=== PATIENT | female | born 1945 | race Caucasian/White ===

== ENCOUNTER 2018-02-23 07:54 | Emergency (ER) | payer MEDICARE, BC ==
--- NOTE | 2018-02-23 08:22 | Emergency Department Record ---
History of Present Illness - General Chief Complaint: Abdominal Pain Stated Complaint: NAUSEA,ABD PAIN Time Seen by Provider: 02/23/18 08:15 Source: Patient, RN notes reviewed Mode of Arrival: Ambulatory - History of Present Illness Initial Comments: 2 days ago and epigastric abdominal pain. and the pain radiates into her back. Patient states nauseated and she has a pacer defibrilalator 2013 EF 25%. Patient states loose stools all the time no changes . GB removed 2013 and appendectomy 1976. MD Complaint: Abdominal pain Onset/Timin -: Days(s) Location: RUQ Radiation: None Migration to: No migration Severity: Severe Quality: Sharp Consistency: Constant Improves With: Nothing Worsens With: Nothing Associated Symptoms: Fever, Nausea - Related Data Home Medications Medication Instructions Recorded Confirmed Last Taken Spironolactone [Aldactone] 25 mg PO DAILY 02/23/18 02/23/18 02/22/18 Previous Rx's Medication Instructions Recorded Pantoprazole Sodium [Protonix] 40 mg PO DAILY #30 tablet. 02/23/18 Allergies Allergy/AdvReac Type Severity Reaction Status Date / Time Sulfa (Sulfonamide Allergy Severe TACHYCARDIA Verified 02/23/18 08:05 Antibiotics) [SULFA (SULFONAMIDE ANTIBIOTICS)] dicyclomine Allergy Intermediate shaking Verified 02/23/18 08:05 fluoxetine HCl [From Prozac] Allergy Intermediate DEPRESSION Verified 02/23/18 08:05 venlafaxine HCl Allergy Mild DEPRESSION Verified 02/23/18 08:05 [From Effexor] lisinopril [From Prinivil] AdvReac Intermediate Cough Verified 02/23/18 08:05 Travel Screening - Travel/Exposure Within Last 30 Days Have you traveled within the last 30 days?: No Review of Systems Reviewed: No additional complaints except as noted below Constitutional: Reports: As per HPI. Denies: Chills, Fever, Malaise, Night sweats, Weakness, Weight change Eyes: Reports: As per HPI. Denies: Eye discharge, Eye pain, Photophobia, Vision change ENT: Reports: As per HPI. Denies: Congestion, Dental pain, Ear pain, Epistaxis , Hearing loss, Throat pain Respiratory: Reports: As per HPI, Other (sob). Denies: Cough, Dyspnea, Hemoptysis, Stridor, Wheezes Cardiovascular: Reports: As per HPI. Denies: Arrhythmia, Chest pain, Dyspnea on exertion, Edema, Murmurs, Orthopnea, Palpitations, Paroxysmal nocturnal dyspnea, Rheumatic Fever, Syncope Endocrine: Reports: As per HPI. Denies: Fatigue, Heat or cold intolerance, Polydipsia, Polyuria Gastrointestinal: Reports: As per HPI. Denies: Abdominal pain, Constipation, Diarrhea, Hematemesis, Hematochezia, Melena, Nausea, Vomiting Genitourinary: Reports: As per HPI. Denies: Abnormal menses, Discharge, Dyspareunia, Dysuria, Frequency, Hematuria, Incontinence, Retention, Urgency Musculoskeletal: Reports: As per HPI. Denies: Arthralgia, Back pain, Gout, Joint swelling, Myalgia, Neck pain Skin: Reports: As per HPI. Denies: Bruising, Change in color, Change in hair/ nails, Lesions, Pruritus, Rash Neurological: Reports: As per HPI. Denies: Abnormal gait, Confusion, Headache, Numbness, Paresthesias, Seizure, Tingling, Tremors, Vertigo, Weakness Psychiatric: Reports: As per HPI. Denies: Anxiety, Auditory hallucinations, Depression, Homicidal thoughts, Suicidal thoughts, Visual hallucinations Hematological/Lymphatic: Reports: As per HPI. Denies: Anemia, Blood Clots, Easy bleeding, Easy bruising, Swollen glands Past Medical History - SOCIAL HISTORY Smoking Status: Never smoker Alcohol Use: None Drug Use: None - RESPIRATORY Hx Respiratory Disorders: No - CARDIOVASCULAR Hx Cardio Disorders: Yes Hx Cardiac Cath: Yes Hx Pacemaker/Defib: Yes - NEURO Hx Neuro Disorders: No - GI Hx GI Disorders: No - Hx Genitourinary Disorders: No - ENDOCRINE Hx Endocrine Disorders: No - MUSCULOSKELETAL Hx Musculoskeletal Disorders: No - PSYCH Hx Psych Problems: No - HEMATOLOGY/ONCOLOGY Hx Hematology/Oncology Disorders: No Family Medical History Any Significant Family History?: Yes Hx Cancer: Grandparents Hx Heart Disease: Father Physical Exam - General General Appearance: Alert, Oriented x3, Cooperative, No acute distress - Head Head exam: Normal inspection - Eye Eye exam: Normal appearance, PERRL Pupils: Normal accommodation - ENT ENT exam: Normal exam, Mucous membranes moist, Normal external ear exam, Normal orophraynx, TM's normal bilaterally Ear exam: Normal external inspection. negative: External canal tenderness Nasal Exam: Normal inspection. negative: Discharge, Sinus tenderness Mouth exam: Normal external inspection, Tongue normal Teeth exam: Normal inspection. negative: Dental caries Throat exam: Normal inspection. negative: Tonsillar erythema, Tonsillar exudate - Neck Neck exam: Normal inspection, Full ROM. negative: Tenderness - Respiratory Respiratory exam: Normal lung sounds bilaterally. negative: Respiratory distress - Cardiovascular Cardiovascular Exam: Regular rate, Normal rhythm, Normal heart sounds - GI/Abdominal GI/Abdominal exam: Soft, Normal bowel sounds, Tenderness (epigatric pain and right upper quad pain) - Rectal Rectal exam: Deferred - exam: Deferred - Extremities Extremities exam: Normal inspection, Full ROM, Normal capillary refill. negative: Tenderness - Back Back exam: Reports: Normal inspection, Full ROM. Denies: Muscle spasm, Rash noted, Tenderness - Neurological Neurological exam: Alert, Normal gait, Oriented X3, Reflexes normal - Psychiatric Psychiatric exam: Normal affect, Normal mood - Skin Skin exam: Dry, Intact, Normal color, Warm Course Vital Signs 02/23/18 07:58 Temperature 98.1 F Pulse Rate 95 H Respiratory 24 Rate Blood Pressure 149/110 Pulse Ox 98 Medical Decision Making - Data Complexity MDM Data: Labs Ordered and/or Reviewed (d dimer elevated 0.76), EKG Ordered and/ or Reviewed (paced rhytm) - Lab Data Result diagrams: 02/23/18 08:31 02/23/18 08:31 Disposition Clinical Impression: Epigastric pain Gastritis Qualifiers: Gastritis type: unspecified gastritis Chronicity: acute Gastritis bleeding: without bleeding Qualified Code(s): K29.00 - Acute gastritis without bleeding Disposition: Home, Self-Care Condition: (1) Good Instructions: Gastritis (ED) Additional Instructions: tylenol for pain protonix one a day Prescriptions: Pantoprazole Sodium [Protonix] 40 mg PO DAILY #30 tablet.dr Forms: Patient Portal Access Time of Disposition: 11:11 Quality - Quality Measures Quality Measures: N/A - Blood Pressure Screening Does Patient Have Any of the Following: No Blood Pressure Classification: Hypertensive Reading Systolic Measurement: 149 Diastolic Measurement: 110 Screening for High Blood Pressure: < Pre-Hypertensive BP, F/U Documented > [ [id number]] Pre-Hypertensive Follow-up Interventions: Referral to alternative/primary care provider.
[2018-02-23] MEDS ORDERED: ASPIRIN 81 MG CHEWABLE TABLET PO ONE (08:24)
[2018-02-23] MEDS ORDERED: MAGNESIUM HYDROXIDE/AL HYDROX 30 ML, LIDOCAINE VISC 2% 15ML 15 ML PO ONE ×2 (08:37)
[2018-02-23 08:40] LABS: HEMATOCRIT 43.1 % (35.0-47.0); HEMOGLOBIN 14.8 gm/dl (11.6-16.0); MEAN CELL VOLUME 90.9 fl (81-97); MEAN CORPUSCULAR HEMOGLOBIN 31.2 pg (27-33); MEAN CORPUSCULAR HGB CONC 34.3 g/dl (32-36); MEAN PLATELET VOLUME 11.2 fl (7.4-10.4); PLATELET COUNT 189 K/uL (130-400); RED BLOOD COUNT 4.74 M/uL (3.80-5.40); RED CELL DISTRIBUTION WIDTH 12.8 % (11.5-14.5); WHITE BLOOD COUNT W/O DIFF 8.3 K/uL (4.2-12.2)
[2018-02-23 08:52] LABS: BLOOD UREA NITROGEN 22 mg/dL (8-23); CREATININE 0.9 mg/dL (0.5-0.9); EST GLOMERULAR FILTRATION RATE > 60 mL/min; PARTIAL THROMBOPLASTIN TIME 33.8 SECONDS (24.5-39.1)
[2018-02-23 08:53] LABS: TOTAL PROTEIN 7.8 g/dL (6.6-8.7)
[2018-02-23 08:55] LABS: GLUCOSE,RANDOM 121 mg/dL (74-109)
[2018-02-23 08:56] LABS: PLATELET ESTIMATE NORMAL (NORMAL)
[2018-02-23 08:57] LABS: ALBUMIN 4.1 g/dL (4.0-5.0); ALKALINE PHOSPHATASE 64 U/L (35-104); ALT/SGPT 45 U/L (<33); AST/SGOT 45 U/L (10.0-35.0); LIPASE 48 U/L (13-60)
[2018-02-23 08:58] LABS: BILIRUBIN,DIRECT < 0.2 mg/dL (0-0.3)
[2018-02-23 08:59] LABS: URINE APPEARANCE CLEAR; URINE BILIRUBIN NEGATIVE (NEGATIVE); URINE BLOOD NEGATIVE (NEGATIVE); URINE COLOR YELLOW; URINE GLUCOSE (UA) NEGATIVE (NEGATIVE); URINE KETONE 40 mg/dL (NEGATIVE); URINE LEUKOCYTE ESTERASE NEGATIVE (NEGATIVE); URINE NITRITE NEGATIVE (NEGATIVE); URINE PROTEIN TRACE (NEGATIVE); URINE UROBILINOGEN 0.2 E.U./dL (0.20 - 1.00)
[2018-02-23] MEDS ORDERED: PANTOPRAZOLE SODIUM 40 MG TABLET PO ONE (11:11)
[2018-02-23] MEDS ORDERED: ACETAMINOPHEN 500 MG TABLET PO ONE (11:11)
--- NOTE | 2018-02-25 07:06 | RADIOLOGY REPORT ---
EXAM: CHEST, TWO VIEWS HISTORY: CHEST PAIN. TECHNIQUE: Frontal and lateral views of the chest were obtained. Comparison: 12/01/13 chest. FINDINGS: The heart size is normal. Mild atheromatous change of the thoracic aorta. COPD. Osteopenia. Left sided pacing device in place. No pneumothorax. IMPRESSION: COPD. THE LUNGS ARE CLEAR. JOB NUMBER: [id number] MTDD
--- NOTE | 2018-02-25 07:10 | CT ANGIOGRAM REPORT ---
EXAM: CTA OF THE CHEST HISTORY: SHORTNESS OF BREATH. TECHNIQUE: CTA of the chest was performed following IV administration of 85 ml of Omnipaque 350 contrast. Axial images were obtained with coronal and sagittal MIP reconstructions. Comparison: 11/19/13 CTA chest. FINDINGS: There is a pacing device in place. The mediastinal vasculature enhances normally. There is no intraluminal filling defect to suggest pulmonary embolus. Mild ectasia of the thoracic aorta. No evidence for aneurysm. No mediastinal or hilar adenopathy. Small hiatal hernia. Limited evaluation of the upper abdomen is otherwise grossly unremarkable. Cardiomegaly. Trace of pericardial fluid noted. The osseous structures are grossly intact. No pneumothorax. The visualized airways are patent. 4 mm ground glass nodule in the right upper lobe/apex, unchanged from the prior exam. The lungs are otherwise clear. IMPRESSION: 1. NEGATIVE FOR AN ACUTE INTRATHORACIC PROCESS. 2. 4 MM STABLE GROUND GLASS NODULE IN THE RIGHT LUNG APEX. JOB NUMBER: [id number] MTDD
--- NOTE | 2018-02-25 12:11 | Discharge Summary ---
Providers Discharge Summary Date: 02/25/18 Expected Date of Discharge: 02/25/18 Physical Exam - General General Appearance: Alert, Oriented x3, Cooperative, No acute distress - Head Head exam: Normal inspection - Eye Eye exam: Normal appearance, PERRL Pupils: Normal accommodation - ENT ENT exam: Normal exam, Mucous membranes moist, Normal external ear exam, Normal orophraynx, TM's normal bilaterally Ear exam: Normal external inspection. negative: External canal tenderness Nasal Exam: Normal inspection. negative: Discharge, Sinus tenderness Mouth exam: Normal external inspection, Tongue normal Teeth exam: Normal inspection. negative: Dental caries Throat exam: Normal inspection. negative: Tonsillar erythema, Tonsillar exudate - Neck Neck exam: Normal inspection, Full ROM. negative: Tenderness - Respiratory Respiratory exam: Normal lung sounds bilaterally. negative: Respiratory distress - Cardiovascular Cardiovascular Exam: Regular rate, Normal rhythm, Normal heart sounds - GI/Abdominal GI/Abdominal exam: Soft, Normal bowel sounds, Tenderness (epigatric pain and right upper quad pain) - Rectal Rectal exam: Deferred - exam: Deferred - Extremities Extremities exam: Normal inspection, Full ROM, Normal capillary refill. negative: Tenderness - Back Back exam: Reports: Normal inspection, Full ROM. Denies: Muscle spasm, Rash noted, Tenderness - Neurological Neurological exam: Alert, Normal gait, Oriented X3, Reflexes normal - Psychiatric Psychiatric exam: Normal affect, Normal mood - Skin Skin exam: Dry, Intact, Normal color, Warm Hospitalization - Hospitalization Course Disposition: Home, Self-Care Procedures: Imaging and X-Rays 02/23/18 08:44 CHEST 2 VIEWS [RAD] Stat 02/23/18 09:06 CHEST CTA w contrast [CTA] Stat Cardiology Procedures 02/23/18 08:24 Cuff Turner NOW EKG NOW Abnormal Labs: Abnormal Lab Results 02/23/18 02/23/18 02/23/18 Range/Units 08:31 08:31 08:31 MPV 11.2 H (7.4-10.4) fl D-Dimer 0.76 H (0-0.59) mg/L FEU Anion Gap 19.0 H (7-16) Random Glucose 121 H (74-109) mg/dL AST 45 H (10.0-35.0) U/L ALT 45 H (<33) U/L Urine Protein (NEGATIVE) Urine Ketones (NEGATIVE) 02/23/18 Range/Units 08:45 MPV (7.4-10.4) fl D-Dimer (0-0.59) mg/L FEU Anion Gap (7-16) Random Glucose (74-109) mg/dL AST (10.0-35.0) U/L ALT (<33) U/L Urine Protein Trace H (NEGATIVE) Urine Ketones 40 mg/dl H (NEGATIVE) Condition at Discharge: (1) Good Discharge Medications - Discharge Medications Prescriptions: Pantoprazole Sodium [Protonix] 40 mg PO DAILY #30 tablet. Sucralfate [Carafate] 1 gm PO QID #40 tablet Home Medications: Ambulatory Orders Ca/D3/Mag/Zinc/Georgie/Gorge/Mgbor [Caltrate 600+D3+Min Chew Tab] 1 each PO DAILY [Last Taken 02/22/18] Carvedilol 25 mg PO BID 08/02/14 [Last Taken 02/22/18] Cholecalciferol [Vitamin D3] 1,000 unit PO DAILY 08/02/14 [Last Taken 02/22/18] Losartan Potassium 100 mg PO DAILY 08/02/14 [Last Taken 02/22/18] Multivit with Calcium,Iron,Min [Multiple Vitamins For Women] 1 each PO DAILY 12/11 [Last Taken 02/22/18] Pantoprazole Sodium [Protonix] 40 mg PO DAILY #30 tablet. 02/23/18 [Last Taken Unknown] Spironolactone [Aldactone] 25 mg PO DAILY 02/23/18 [Last Taken 02/22/18] Sucralfate [Carafate] 1 gm PO QID #40 tablet 02/25/18 [Last Taken Unknown] Discharge Plan - Discharge Instructions Diet at Discharge: Advance to Usual Diet Instructions: Gastritis (ED), Diet for Stomach Ulcers and Gastritis (GEN) Additional Instructions: Follow up with KEREN Serra in the [facility] next Saturday. We are now located in the new building at entrance [address]. Continue protonix 40mg by mouth once daily. Take this first thing in the morning at least 30 minutes prior to eating/drinking Continue carafate 1gm by mouth four times daily about 10-15 minutes before a meal. Follow the diet for ulcers and gastritis. Continue clear liquids today and may advance to soft, bland diet tomorrow. Please call with any questions or concerns Return to ED for any new or worsening symptoms Quality Measures - Quality Measures Quality Measures: Advance Directives, Documentation of Current Medications in Medical Record, Elder Maltreatment Screen and Follow-Up Plan, Screening for High Blood Pressure and F/U Documented - Current Medications Quality Measure: Measure #130: Documentation of Current Medications - Blood Pressure Screening Quality Measure: Screening for High Blood Pressure and Follow-Up Documented Blood Pressure Classification: Hypertensive Reading Systolic Measurement: 162 Diastolic Measurement: 94 - Advance Directives Quality Measure: Measure #47: Care Plan Advance Directives Established: No Advance Directives Information Provided To Patient: No Advance Directives on File: No - Elder Abuse Suspicion Index Screening: Elder Abuse Suspicion Index Screening Screening Result: Negative result EASI Reference Information: Christo ARAYA, Jose Luis C, Nhi D, April Diaz.Development and validation of a tool to assist physicians identification of elder abuse: The Elder Abuse Suspicion Index (EASI ). Journal of Elder Abuse and Neglect, 2008; 20 (3): 276-300. - Elder Maltreatment Screen Quality Measures: Elder Maltreatment Screen and Follow-Up Plan
== END 2018-02-23 11:39 | disposition home or self-care (01) ==
LOC: ER 07:54
DX: K29.00 Acute gastritis without bleeding (principal); R10.31 Right lower quadrant pain; R11.0 Nausea; R06.02 Shortness of breath; Z95.810 Presence of automatic (implantable) cardiac defibrillator; Z87.891 Personal history of nicotine dependence
CPT/HCPCS: 99284 ×2; 83690; 85730; 80076; 80048; 81003; 84484; 85379; 85027; 71046; 71275; 93005; 93010; Q9967; J3490

== ENCOUNTER 2018-02-23 22:02 | Observation (INO) | payer MEDICARE, BC ==
[2018-02-23] MEDS ORDERED: MORPHINE SULFATE 4MG/ML PREFILLED SYRINGE IVP ONE (22:36)
[2018-02-23] MEDS ORDERED: ONDANSETRON HCL IV 4 MG/2 ML VIAL IVP ONE (22:36)
--- NOTE | 2018-02-23 22:41 | Emergency Department Record ---
History of Present Illness - General Chief Complaint: Abdominal Pain Stated Complaint: ABDOMINAL PAIN Time Seen by Provider: 02/23/18 22:32 Source: Patient Mode of Arrival: Ambulatory Limitations: No limitations - History of Present Illness Initial Comments: 72 yo female presents to ED for evaluation of sharp, stabbing epigastric pain symptoms that began 3 days ago, worsened tonight. Patient denies vomiting symptoms, denies fevers, chills, or recent illness. Patient does report previous cholecystectomy, denies urinary symptoms. Patient denies change in her stools (usually loose). Patient does report a history of cardiomyopathy with EF 25%. MD Complaint: Abdominal pain Onset/Timin -: Days(s) Radiation: Back Migration to: Epigastric Severity: Moderate Severity scale (1-10): 10 Quality: Sharp Consistency: Constant Improves With: Nothing Worsens With: Eating Associated Symptoms: Denies other symptoms - Related Data Patient : No Previous Rx's Medication Instructions Recorded Pantoprazole Sodium [Protonix] 40 mg PO DAILY #30 tablet. 02/23/18 Allergies Allergy/AdvReac Type Severity Reaction Status Date / Time Sulfa (Sulfonamide Allergy Severe TACHYCARDIA Verified 02/23/18 08:05 Antibiotics) [SULFA (SULFONAMIDE ANTIBIOTICS)] dicyclomine Allergy Intermediate shaking Verified 02/23/18 08:05 fluoxetine HCl [From Prozac] Allergy Intermediate DEPRESSION Verified 02/23/18 08:05 venlafaxine HCl Allergy Mild DEPRESSION Verified 02/23/18 08:05 [From Effexor] lisinopril [From Prinivil] AdvReac Intermediate Cough Verified 02/23/18 08:05 Travel Screening - Travel/Exposure Within Last 30 Days Have you traveled within the last 30 days?: No - Travel/Exposure Within Last Year Have you traveled outside the [place] in the last year?: No - Additonal Travel Details Have you been exposed to anyone with a communicable illness?: No - Travel Symptoms Symptom Screening: None Review of Systems Constitutional: Denies: Chills, Fever, Malaise, Night sweats Eyes: Denies: Eye discharge, Eye pain ENT: Denies: Congestion, Ear pain, Epistaxis Respiratory: Denies: Cough, Dyspnea Cardiovascular: Denies: Chest pain, Dyspnea on exertion Endocrine: Denies: Fatigue, Heat or cold intolerance Gastrointestinal: Reports: Abdominal pain. Denies: Nausea, Vomiting Genitourinary: Denies: Incontinence, Retention Musculoskeletal: Denies: Arthralgia, Back pain, Gout, Joint swelling Skin: Denies: Bruising, Change in color Neurological: Denies: Abnormal gait, Confusion, Headache, Seizure Psychiatric: Denies: Anxiety Hematological/Lymphatic: Denies: Anemia, Blood Clots Past Medical History - SOCIAL HISTORY Smoking Status: Never smoker Alcohol Use: None Drug Use: None - RESPIRATORY Hx Respiratory Disorders: No - CARDIOVASCULAR Hx Cardio Disorders: Yes Hx Cardiac Cath: Yes Hx Pacemaker/Defib: Yes - NEURO Hx Neuro Disorders: No - GI Hx GI Disorders: No - Hx Genitourinary Disorders: No - ENDOCRINE Hx Endocrine Disorders: No - MUSCULOSKELETAL Hx Musculoskeletal Disorders: No - PSYCH Hx Psych Problems: No - HEMATOLOGY/ONCOLOGY Hx Hematology/Oncology Disorders: No Family Medical History Any Significant Family History?: No Hx Cancer: Grandparents Hx Heart Disease: Father Physical Exam - General General Appearance: Alert, Oriented x3, Cooperative, Moderate distress, Anxious Limitations: No limitations - Head Head exam: Atraumatic, Normocephalic, Normal inspection Head exam detail: negative: Abrasion, Contusion, Sheppard's sign, General tenderness, Hematoma, Laceration - Eye Eye exam: Normal appearance. negative: Conjunctival injection, Periorbital swelling, Periorbital tenderness, Scleral icterus - ENT Ear exam: negative: Auricular hematoma, Auricular trauma Nasal Exam: negative: Active bleeding, Discharge, Dried blood, Foreign body Mouth exam: negative: Drooling, Laceration, Muffled voice, Tongue elevation - Neck Neck exam: Normal inspection. negative: Meningismus, Tenderness - Respiratory Respiratory exam: Normal lung sounds bilaterally. negative: Rales, Respiratory distress, Rhonchi, Stridor - Cardiovascular Cardiovascular Exam: Regular rate, Normal rhythm, Normal heart sounds - GI/Abdominal GI/Abdominal exam: Soft, Tenderness (TTP epigastric region, no rebound or guarding are present.). negative: Rebound, Rigid - Rectal Rectal exam: Deferred - exam: Deferred - Extremities Extremities exam: Normal inspection. negative: Calf tenderness, Pedal edema, Tenderness - Back Back exam: Denies: CVA tenderness (R), CVA tenderness (L) - Neurological Neurological exam: Alert, Normal gait, Oriented X3 - Psychiatric Psychiatric exam: Normal affect, Normal mood - Skin Skin exam: Normal color. negative: Abrasion Type of lesion: negative: abrasion Course Vital Signs 02/23/18 02/23/18 22:22 22:27 Temperature 97.6 F Pulse Rate [ 89 Pulse Ox Probe] Respiratory 26 H 28 H Rate Blood Pressure 168/109 [Left Arm] Pulse Ox 97 - Reevaluation(s) Reevaluation #1: 02/23/18 23:21 Laboratory studies were reviewed and are grossly unremarkable for an acute process. Reevaluation #2: 02/24/18 00:02 CT Abdomen and Pelvis: No acute findings Patient reports that her pain symptoms are improved, will admit for further evaluation as there is no celar etiology for her symptoms. Patient and her SO are in agreement with the plan of care as discussed. Reevaluation #3: 02/24/18 06:51 Case was discussed with Izabella Ureña, will accept admission at this time. Medical Decision Making - Lab Data Result diagrams: 02/23/18 22:36 02/23/18 22:36 Disposition Disposition: Admit Clinical Impression: Epigastric abdominal pain Disposition: Still a Patient at [facility] Decision to Admit: Admit from ER Decision to Admit Date: 02/24/18 Decision to Admit Time: 00:08 Condition: (2) Stable Time of Disposition: 00:08 Quality - Quality Measures Quality Measures: N/A - Blood Pressure Screening Does Patient Have Any of the Following: Active Dx of HTN Blood Pressure Classification: Hypertensive Reading Systolic Measurement: 149 Diastolic Measurement: 91 Screening for High Blood Pressure: Patient Exclusion, Hx of HTN [G9744] First Hypertensive Follow-up Interventions: Referral to alternative/primary care provider.
[2018-02-23 22:43] LABS: HEMOGLOBIN 14.8 gm/dl (11.6-16.0); MEAN CORPUSCULAR HGB CONC 34.4 g/dl (32-36); MEAN PLATELET VOLUME 11.2 fl (7.4-10.4); PLATELET COUNT 201 K/uL (130-400); RED BLOOD COUNT 4.78 M/uL (3.80-5.40); RED CELL DISTRIBUTION WIDTH 12.6 % (11.5-14.5); WHITE BLOOD COUNT W/O DIFF 8.7 K/uL (4.2-12.2)
[2018-02-23 22:57] LABS: BLOOD UREA NITROGEN 22 mg/dL (8-23); CREATININE 0.8 mg/dL (0.5-0.9); EST GLOMERULAR FILTRATION RATE > 60 mL/min; TOTAL PROTEIN 7.9 g/dL (6.6-8.7)
[2018-02-23 22:59] LABS: GLUCOSE,RANDOM 128 mg/dL (74-109)
[2018-02-23 23:02] LABS: ALB/GLOB RATIO 1.1 (1.1-1.8); ALBUMIN 4.1 g/dL (4.0-5.0); ALKALINE PHOSPHATASE 70 U/L (35-104); ALT/SGPT 49 U/L (<33); AST/SGOT 44 U/L (10.0-35.0); LIPASE 50 U/L (13-60)
[2018-02-23 23:50] LABS: URINE APPEARANCE CLEAR; URINE BILIRUBIN NEGATIVE (NEGATIVE); URINE BLOOD NEGATIVE (NEGATIVE); URINE COLOR YELLOW; URINE GLUCOSE (UA) NEGATIVE (NEGATIVE); URINE KETONE 15 mg/dL (NEGATIVE); URINE LEUKOCYTE ESTERASE NEGATIVE (NEGATIVE); URINE NITRITE NEGATIVE (NEGATIVE); URINE PROTEIN TRACE (NEGATIVE); URINE UROBILINOGEN 0.2 E.U./dL (0.20 - 1.00)
[2018-02-24 00:02] LABS: URINE EPITHELIAL CELLS NONE SEEN (FEW); URINE RBC 0 - 2 (NONE SEEN); URINE WBC 0 - 2 (0-2/hpf)
[2018-02-24] MEDS ORDERED: MORPHINE SULFATE 4MG/ML PREFILLED SYRINGE IVP PRN (00:41)
[2018-02-24] MEDS: ONDANSETRON HCL IV 4 MG/2 ML VIAL IVP PRN ×2 (05:39→09:46)
--- NOTE | 2018-02-24 06:57 | History & Physical ---
History of Present Illness - Date of Service Date of Service for History & Physical: 02/24/18 - History of Present Illness Admitting Diagnosis: Epigastric abdominal pain History of Present Illness: 72 female with CC of sharp, epigastric pain. She has history of CHF with ICD and follows with Dr. Magallanes. She has h/o cholecystectomy in 2013. Patient presented to the ED with severe epigastric pain that radiated slightly to the RUQ. Patient was seen in [facility] ED earlier that day for similar pain. She underwent CTA of chest that was negative for PE or other abnormalities. She was discharged home and she returned because the pain had gotten worse. While in our ED, vitals showed temp of 97.6, pulse 84, bp 160/85 and o2 sat of 100%. CBC was unremarkable. CMP showed AG of 20. LA of 1.3. AST and ALT slightly elevated at 44 and 49. Tbili normal at 0.7 and lispase wnl at 50. patient underwent CT of the abdomen that was negative for acute process. She was given a dose of morphine that improved her abdominal pain and was admitted. 02/24/18- Patient states she has continued to have severe epigastric pain. The morphine has helped during the night and jordy bring her pain down to about a 4/ 10 but then wears off. The pain is epigastric with some radiation to the RUQ and goes straight through to the back. The pain does not seem to be exacerbated by eating or movement. She says the pain she had just prior to having her GB removed was similar. She denies any nausea, vomiting, changes in bowel habits or dark, bloody stools. she denies fevers, chills, chest pain, or shortness of breath. She says the pain came on saturday and has not improved. She has had a cscope in the past but has never had an EGD. pcp: Dr. Aragon Travel Screening - Travel/Exposure Within Last 30 Days Have you traveled within the last 30 days?: No - Travel/Exposure Within Last Year Have you traveled outside the [place] in the last year?: No - Additonal Travel Details Have you been exposed to anyone with a communicable illness?: No - Travel Symptoms Symptom Screening: None Review of Systems Constitutional: Denies: Chills, Fever, Malaise, Night sweats Eyes: Denies: Eye discharge, Eye pain ENT: Denies: Congestion, Ear pain, Epistaxis Respiratory: Denies: Cough, Dyspnea Cardiovascular: Denies: Chest pain, Dyspnea on exertion Endocrine: Denies: Fatigue, Heat or cold intolerance Gastrointestinal: Reports: Abdominal pain. Denies: Nausea, Vomiting Genitourinary: Denies: Incontinence, Retention Musculoskeletal: Denies: Arthralgia, Back pain, Gout, Joint swelling Skin: Denies: Bruising, Change in color Neurological: Denies: Abnormal gait, Confusion, Headache, Seizure Psychiatric: Denies: Anxiety Hematological/Lymphatic: Denies: Anemia, Blood Clots Past Medical History - SOCIAL HISTORY Smoking Status: Never smoker Alcohol Use: None Drug Use: None - RESPIRATORY Hx Respiratory Disorders: No - CARDIOVASCULAR Hx Cardio Disorders: Yes Hx Cardiac Cath: Yes Hx Pacemaker/Defib: Yes - NEURO Hx Neuro Disorders: No - GI Hx GI Disorders: No - Hx Genitourinary Disorders: No - ENDOCRINE Hx Endocrine Disorders: No - MUSCULOSKELETAL Hx Musculoskeletal Disorders: No - PSYCH Hx Psych Problems: No - HEMATOLOGY/ONCOLOGY Hx Hematology/Oncology Disorders: No Family Medical History Any Significant Family History?: No Hx Cancer: Grandparents Hx Heart Disease: Father H&P Meds/Allergies - Allergies Allergies: Allergies Allergy/AdvReac Type Severity Reaction Status Date / Time Sulfa (Sulfonamide Allergy Severe TACHYCARDIA Verified 02/23/18 08:05 Antibiotics) [SULFA (SULFONAMIDE ANTIBIOTICS)] dicyclomine Allergy Intermediate shaking Verified 02/23/18 08:05 fluoxetine HCl [From Prozac] Allergy Intermediate DEPRESSION Verified 02/23/18 08:05 venlafaxine HCl Allergy Mild DEPRESSION Verified 02/23/18 08:05 [From Effexor] lisinopril [From Prinivil] AdvReac Intermediate Cough Verified 02/23/18 08:05 - Home Medications Previous Rx's Medication Instructions Recorded Pantoprazole Sodium [Protonix] 40 mg PO DAILY #30 tablet. 02/23/18 Sucralfate [Carafate] 1 gm PO QID #40 tablet 02/25/18 - Active Medications Active Medications: Current Medications Sodium Chloride () 1,000 mls @ 100 mls/hr IV .Q10H PRN PRN Reason: LARGE VOLUME IV Losartan Potassium (Losartan Potassium) 100 mg PO DAILY ROSI Morphine Sulfate (Morphine Sulfate) 4 mg IVP Q4H PRN PRN Reason: Abdominal Pain Last Admin: 02/24/18 05:43 Dose: 4 mg Non-Formulary Medication (Carvedilol [Carvedilol]) 25 mg PO BID [facility] Ondansetron HCl (Zofran) 4 mg IVP Q4H PRN PRN Reason: NAUSEA Last Admin: 02/24/18 05:39 Dose: 4 mg Pantoprazole Sodium (Protonix) 40 mg PO NOW [facility] Spironolactone (Aldactone) 25 mg PO DAILY [facility] Sucralfate (Carafate) 1 g PO QID [facility] Physical Exam - Vital Signs Vital Signs: Vital Signs - Last 24 Hrs Temp Pulse Pulse Resp BP BP Pulse Ox 02/24/18 06:00 97.6 F 84 20 160/85 95 02/24/18 02:00 97.7 F 79 18 157/86 95 02/24/18 01:27 77 20 149/91 96 02/24/18 00:41 98.1 F 76 19 148/68 95 02/24/18 00:00 74 20 02/23/18 23:41 88 22 162/90 95 02/23/18 22:27 97.6 F 89 28 H 168/109 97 02/23/18 22:22 26 H - General General Appearance: Alert, Oriented x3, Cooperative, Mild distress Limitations: No limitations - Head Head exam: Atraumatic, Normocephalic, Normal inspection Head exam detail: negative: Abrasion, Contusion, Sheppard's sign, General tenderness, Hematoma, Laceration - Eye Eye exam: Normal appearance. negative: Conjunctival injection, Periorbital swelling, Periorbital tenderness, Scleral icterus - ENT Ear exam: negative: Auricular hematoma, Auricular trauma Nasal Exam: negative: Active bleeding, Discharge, Dried blood, Foreign body Mouth exam: negative: Drooling, Laceration, Muffled voice, Tongue elevation - Neck Neck exam: Normal inspection. negative: Meningismus, Tenderness - Respiratory Respiratory exam: Normal lung sounds bilaterally. negative: Rales, Respiratory distress, Rhonchi, Stridor - Cardiovascular Cardiovascular Exam: Regular rate, Normal rhythm, Normal heart sounds - GI/Abdominal GI/Abdominal exam: Soft, Normal bowel sounds, Tenderness (TTP epigastric region , no rebound or guarding are present.). negative: Distended, Rebound, Rigid - Rectal Rectal exam: Deferred - exam: Deferred - Extremities Extremities exam: Normal inspection. negative: Calf tenderness, Pedal edema, Tenderness - Back Back exam: Denies: CVA tenderness (R), CVA tenderness (L) - Neurological Neurological exam: Alert, Normal gait, Oriented X3 - Psychiatric Psychiatric exam: Normal affect, Normal mood - Skin Skin exam: Normal color. negative: Abrasion Type of lesion: negative: abrasion Results - Labs Result Diagrams: 02/25/18 06:15 02/25/18 06:15 Labs Last 24 Hours: Laboratory Results - last 24 hr 02/23/18 02/23/18 02/23/18 22:36 22:36 22:37 WBC 8.7 RBC 4.78 Hgb 14.8 Hct 43.0 MCV 90.0 MCH 31.0 MCHC 34.4 RDW 12.6 Plt Count 201 MPV 11.2 H Neutrophils % 60.0 Eosinophils % Not Reportable Basophils % Not Reportable Lymphocytes 24.0 Monocytes 11.0 H Basophils 1.0 Eosinophil Count 4.0 Sodium 139 Potassium 4.2 Chloride 96 L Carbon Dioxide 23.0 Anion Gap 20.0 H BUN 22 Creatinine 0.8 Estimated GFR > 60 Random Glucose 128 H Lactic Acid Cancelled 1.3 Calcium 9.2 Total Bilirubin 0.70 AST 44 H ALT 49 H Alkaline Phosphatase 70 Troponin T Total Protein 7.9 Albumin 4.1 Globulin 3.8 Albumin/Globulin Ratio 1.1 Lipase 50 Urine Color Urine Appearance Urine pH Ur Specific [place] Urine Protein Urine Glucose (UA) Urine Ketones Urine Blood Urine Nitrite Urine Bilirubin Urine Urobilinogen Ur Leukocyte Esterase Urine RBC Urine WBC Ur Epithelial Cells 02/23/18 02/24/18 23:45 Unknown WBC RBC Hgb Hct MCV MCH MCHC RDW Plt Count MPV Neutrophils % Eosinophils % Basophils % Lymphocytes Monocytes Basophils Eosinophil Count Sodium Potassium Chloride Carbon Dioxide Anion Gap BUN Creatinine Estimated GFR Random Glucose Lactic Acid Calcium Total Bilirubin AST ALT Alkaline Phosphatase Troponin T < 0.010 Total Protein Albumin Globulin Albumin/Globulin Ratio Lipase Urine Color Yellow Urine Appearance Clear Urine pH 7.5 Ur Specific [place] 1.010 Urine Protein Trace H Urine Glucose (UA) Negative Urine Ketones 15 mg/dl H Urine Blood Negative Urine Nitrite Negative Urine Bilirubin Negative Urine Urobilinogen 0.2 Ur Leukocyte Esterase Negative Urine RBC 0 - 2 Urine WBC 0 - 2 Ur Epithelial Cells None seen VTE H&P Assessment - Risk for VTE Risk for VTE: Yes Risk Level: High Risk Assessment Date: 02/24/18 Risk Assessment Time: 08:00 VTE Orders Placed or Will Be Placed: No VTE Reason for No Prophylaxis: Contraindicated (possible active GI bleed/ulcer) Plan - Detailed Diagnosis and Plan (1) Epigastric pain Status: Acute Base Code: R10.13 - EPIGASTRIC PAIN Comment: 02/24/18- stable. CT abdomen negative for acute process, possible dilatation of the CBD. CTA of the chest performed earlier yesterday negatvie for PE or acute process. repeat Troponin wnl. UA had trace protein and small ketones. CMP showed mild elevation of AST/ALT with normal bili, alk phoe, LA,a nd lipase. -will start protonix 40mg IV daily and carafate 1gm po qid for possible ulcer. H. pylori stool antigen ordered. No GI available for 3 days due to the holiday -will order abdominal u/s to further evalute. will be done tomorrow morning since no u/s tech due to holiday -continue NPO -continue IVF with NS 100cc/hr -Will try GI cocktail for pain moderate and dilaudid 1mg IV q4H for severe pain -vitals q8H -repeat labs qam (2) DVT prophylaxis Status: Acute Base Code: [id number] - Comment: 02/24/18- patient is high risk with age and restricted mobility, however, concern for active ulcer/gi bleed so will hold anticoagulation. -encourage ambulation as tolerating (3) Full code status Status: Acute Base Code: Z78.9 - OTHER SPECIFIED HEALTH STATUS Comment: 02/24- patient is full code
[2018-02-24] MEDS ORDERED: PANTOPRAZOLE SODIUM 40 MG TABLET PO SCH ×2 (07:00→10:00)
[2018-02-24] MEDS ORDERED: MORPHINE SULFATE 10 MG/ML VIAL IVP ONE (08:43)
[2018-02-24] MEDS: 0.9 % SODIUM CHLORIDE 1000ML 1,000 ML IV PRN ×2 (09:50→20:34)
[2018-02-24] MEDS: LOSARTAN POTASSIUM 100 MG TABLET PO SCH (10:01)
[2018-02-24] MEDS: SPIRONOLACTONE 25 MG TAB PO SCH (10:01)
[2018-02-24] MEDS: CARVEDILOL 12.5 MG TABLET PO SCH ×2 (10:02→21:53)
[2018-02-24] MEDS: SUCRALFATE 1 G/10 ML UD PO SCH ×4 (10:02→21:53)
[2018-02-24] MEDS ORDERED: HYDROMORPHONE HCL 2 MG/ML VIAL IVP PRN (10:09)
[2018-02-24] MEDS ORDERED: MAGNESIUM HYDROXIDE/AL HYDROX 30 ML, LIDOCAINE VISC 2% 15ML 15 ML PO PRN ×2 (18:59)
[2018-02-25] MEDS: 0.9 % SODIUM CHLORIDE 1000ML 1,000 ML IV PRN (04:35)
[2018-02-25 06:28] LABS: HEMATOCRIT 38.8 % (35.0-47.0); MEAN CELL VOLUME 91.9 fl (81-97); MEAN CORPUSCULAR HEMOGLOBIN 30.8 pg (27-33); MEAN CORPUSCULAR HGB CONC 33.5 g/dl (32-36); MEAN PLATELET VOLUME 10.5 fl (7.4-10.4); PLATELET COUNT 173 K/uL (130-400); RED BLOOD COUNT 4.22 M/uL (3.80-5.40); RED CELL DISTRIBUTION WIDTH 12.4 % (11.5-14.5); WHITE BLOOD COUNT W/O DIFF 9.5 K/uL (4.2-12.2)
[2018-02-25 06:43] LABS: ALB/GLOB RATIO 1.1 (1.1-1.8); ALBUMIN 3.4 g/dL (4.0-5.0); ALKALINE PHOSPHATASE 61 U/L (35-104); ALT/SGPT 40 U/L (<33); AST/SGOT 35 U/L (10.0-35.0); BLOOD UREA NITROGEN 14 mg/dL (8-23); CREATININE 0.7 mg/dL (0.5-0.9); EST GLOMERULAR FILTRATION RATE > 60 mL/min; GLUCOSE,RANDOM 89 mg/dL (74-109); LIPASE 61 U/L (13-60); TOTAL PROTEIN 6.6 g/dL (6.6-8.7)
[2018-02-25] MEDS ORDERED: PANTOPRAZOLE SODIUM 40 MG TABLET PO SCH (07:00)
--- NOTE | 2018-02-25 07:17 | CT SCAN REPORT ---
EXAM: CT OF THE ABDOMEN AND PELVIS WITH CONTRAST HISTORY: ABDOMINAL PAIN. TECHNIQUE: Sequential axial images were obtained from the diaphragms through the ischiorectal fossa after intravenous and oral administration of 100 ml of Omnipaque 300 contrast material. FINDINGS: There is cardiomegaly with small pericardial effusion. The visualized lung bases appear normal. The liver appears normal. The gallbladder has been surgically removed. There is mild dilatation of the common bile duct. The pancreas and spleen appear normal. The adrenal glands appear normal. There are left peripelvic cysts. There is laxity of the ventral abdominal wall. The small bowel appears normal. There is colonic diverticulosis. No evidence of diverticulitis. The uterus and adnexal structures appear normal. The urinary bladder appears normal. There is multilevel degenerative change of the lumbar spine. IMPRESSION: 1. LAXITY OF THE VENTRAL ABDOMINAL WALL. 2. LEFT PERIPELVIC CYST. NO OBSTRUCTIVE UROPATHY IS APPRECIATED. 3. POSTOP CHOLECYSTECTOMY. MILD DILATATION OF THE COMMON BILE DUCT. JOB NUMBER: [id number] AND [id number] [facility]
[2018-02-25] MEDS: SPIRONOLACTONE 25 MG TAB PO SCH (09:16)
[2018-02-25] MEDS: LOSARTAN POTASSIUM 100 MG TABLET PO SCH ×2 (09:16→12:26)
[2018-02-25] MEDS: SUCRALFATE 1 G/10 ML UD PO SCH (09:16)
[2018-02-25] MEDS: CARVEDILOL 12.5 MG TABLET PO SCH (09:16)
--- NOTE | 2018-02-25 13:00 | ULTRASOUND REPORT ---
EXAM: ULTRASOUND OF THE ABDOMEN HISTORY: NAUSEA. TECHNIQUE: Complete transabdominal ultrasound of the abdomen was obtained. Comparison: CT from 02/23/18. FINDINGS: The liver is homogeneous in echotexture without focal lesion. Surgical absence of the gallbladder. The CBD is mildly prominent at 7 mm. This may be a function of post cholecystectomy state. The visualized portions of the pancreas are unremarkable. The spleen is unremarkable at 7 cm. The right kidney measures 10 x 3 cm and the left kidney measures 11 x 5 cm. No renal calculus or solid renal mass. No hydronephrosis. Parapelvic cysts and cortical cysts of the left kidney as noted on recent CT. The visualized abdominal aorta and inferior vena cava are unremarkable. No free fluid. IMPRESSION: 1. STATUS POST CHOLECYSTECTOMY. THE CBD IS MILDLY PROMINENT AT 7 MM. THIS MAY BE FUNCTION OF POST CHOLECYSTECTOMY STATE. CONSIDER FURTHER ASSESSMENT WITH MRCP OR ERCP. 2. LEFT RENAL CORTICAL CYST AND PARAPELVIC CYST FORMATION. JOB NUMBER: [id number] [facility]
--- NOTE | 2018-02-25 16:53 | Discharge Summary ---
Providers Discharge Summary Date: 02/25/18 Date of admission: 02/24/18 00:39 Expected Date of Discharge: 02/25/18 Attending physician: NICK ARAGON Primary care physician: NICK ARAGON Physical Exam - Vital Signs Vital Signs: Vital Signs - Last 24 Hrs Temp Pulse Resp BP BP Pulse Ox 02/25/18 12:44 98.2 F 79 16 132/82 95 02/25/18 10:00 97 F L 78 16 142/70 96 02/25/18 09:11 98.3 F 138/67 02/25/18 09:00 70 18 02/25/18 06:00 98.3 F 68 18 138/67 95 02/24/18 22:00 97.3 F L 73 18 155/75 97 02/24/18 21:00 18 02/24/18 18:00 98.7 F 76 18 142/67 93 L - General General Appearance: Alert, Oriented x3, Cooperative, No acute distress Limitations: No limitations - Head Head exam: Atraumatic, Normocephalic, Normal inspection Head exam detail: negative: Abrasion, Contusion, Sheppard's sign, General tenderness, Hematoma, Laceration - Eye Eye exam: Normal appearance. negative: Conjunctival injection, Periorbital swelling, Periorbital tenderness, Scleral icterus - ENT Ear exam: negative: Auricular hematoma, Auricular trauma Nasal Exam: negative: Active bleeding, Discharge, Dried blood, Foreign body Mouth exam: negative: Drooling, Laceration, Muffled voice, Tongue elevation - Neck Neck exam: Normal inspection. negative: Meningismus, Tenderness - Respiratory Respiratory exam: Normal lung sounds bilaterally. negative: Rales, Respiratory distress, Rhonchi, Stridor - Cardiovascular Cardiovascular Exam: Regular rate, Normal rhythm, Normal heart sounds - GI/Abdominal GI/Abdominal exam: Soft, Normal bowel sounds. negative: Distended, Rebound, Rigid, Tenderness - Rectal Rectal exam: Deferred - exam: Deferred - Extremities Extremities exam: Normal inspection. negative: Calf tenderness, Pedal edema, Tenderness - Back Back exam: Denies: CVA tenderness (R), CVA tenderness (L) - Neurological Neurological exam: Alert, Normal gait, Oriented X3 - Psychiatric Psychiatric exam: Normal affect, Normal mood - Skin Skin exam: Normal color. negative: Abrasion Type of lesion: negative: abrasion Hospitalization - Hospitalization Admission Diagnosis: Epigastric abdominal pain - Problem List/Discharge Diagnosis (1) Epigastric pain Status: Acute Base Code: R10.13 - EPIGASTRIC PAIN Comment: 02/25/18- resolved. CT abdomen negative for acute process, possible dilatation of the CBD. U/S showed CBD with 7mm width which could be functional s/p steve. Pain resolved after GI cocktail last night. Patient was advanced to clear liquids and has not had any return of her pain. -jordy plan to discharge home today. Has follow up scheduled with pcp next Saturday -continue protonix 40mg po daily and carafate 1gm po qid for 10 days -continue to advance diet as tolerating. spent 10 min discussing diet for ulcers that she should stick to for the next few weeks. (2) DVT prophylaxis Status: Acute Base Code: [id number] - Comment: 02/25/18- patient is high risk with age and restricted mobility, however, concern for active ulcer/gi bleed so will hold anticoagulation. -encourage ambulation as tolerating (3) Full code status Status: Acute Base Code: Z78.9 - OTHER SPECIFIED HEALTH STATUS Comment: 02/25- patient is full code - Hospitalization Course Disposition: Home, Self-Care Hospital Course: 72 female with CC of sharp, epigastric pain. She has history of CHF with ICD and follows with Dr. Magallanes. She has h/o cholecystectomy in 2013. Patient presented to the ED with severe epigastric pain that radiated slightly to the RUQ. Patient was seen in [facility] ED earlier that day for similar pain. She underwent CTA of chest that was negative for PE or other abnormalities. She was discharged home and she returned because the pain had gotten worse. While in our ED, vitals showed temp of 97.6, pulse 84, bp 160/85 and o2 sat of 100%. CBC was unremarkable. CMP showed AG of 20. LA of 1.3. AST and ALT slightly elevated at 44 and 49. Tbili normal at 0.7 and lispase wnl at 50. patient underwent CT of the abdomen that was negative for acute process. She was given a dose of morphine that improved her abdominal pain and was admitted. 02/24/18- Patient states she has continued to have severe epigastric pain. The morphine has helped during the night and jordy bring her pain down to about a 4/ 10 but then wears off. The pain is epigastric with some radiation to the RUQ and goes straight through to the back. The pain does not seem to be exacerbated by eating or movement. She says the pain she had just prior to having her GB removed was similar. She denies any nausea, vomiting, changes in bowel habits or dark, bloody stools. she denies fevers, chills, chest pain, or shortness of breath. She says the pain came on saturday and has not improved. She has had a cscope in the past but has never had an EGD. 02/25/18- patient states she is feeling much improved today. Says she has not had any pain since receiving GI cocktail yesterday afternoon. She denies any abdominal pain today. Has not had a BM today. states she is tolerating her clear liquid diet without any pain, nausea or cramping. She denies any chest pain, SOB, fever, chills or urinary symptoms. pcp: Dr. Aragon Procedures: Imaging and X-Rays 02/23/18 22:36 ABDOMEN/PELVIS W CONTRAST [CT] Stat 02/25/18 06:55 ABDOMEN, COMPLETE [US] Stat Abnormal Labs: Abnormal Lab Results 02/23/18 02/23/18 02/23/18 Range/Units 22:36 22:36 23:45 MPV 11.2 H (7.4-10.4) fl Monocytes 11.0 H (0-9) % Chloride 96 L (98-107) mmol/L Anion Gap 20.0 H (7-16) Random Glucose 128 H (74-109) mg/dL Calcium (8.8-10.2) mg/dL AST 44 H (10.0-35.0) U/L ALT 49 H (<33) U/L Albumin (4.0-5.0) g/dL Lipase (13-60) U/L Urine Protein Trace H (NEGATIVE) Urine Ketones 15 mg/dl H (NEGATIVE) 02/25/18 02/25/18 Range/Units 06:15 06:15 MPV 10.5 H (7.4-10.4) fl Monocytes 15.0 H (0-9) % Chloride (98-107) mmol/L Anion Gap (7-16) Random Glucose (74-109) mg/dL Calcium 8.0 L (8.8-10.2) mg/dL AST (10.0-35.0) U/L ALT 40 H (<33) U/L Albumin 3.4 L (4.0-5.0) g/dL Lipase 61 H (13-60) U/L Urine Protein (NEGATIVE) Urine Ketones (NEGATIVE) Condition at Discharge: (2) Stable Discharge Medications - Discharge Medications Home Medications: Ambulatory Orders Ca/D3/Mag/Zinc/Georgie/Gorge/Mgbor [Caltrate 600+D3+Min Chew Tab] 1 each PO DAILY [Last Taken 02/22/18] Carvedilol 25 mg PO BID 08/02/14 [Last Taken 02/22/18] Cholecalciferol [Vitamin D3] 1,000 unit PO DAILY 08/02/14 [Last Taken 02/22/18] Losartan Potassium 100 mg PO DAILY 08/02/14 [Last Taken 02/22/18] Multivit with Calcium,Iron,Min [Multiple Vitamins For Women] 1 each PO DAILY 12/11 [Last Taken 02/22/18] Pantoprazole Sodium [Protonix] 40 mg PO DAILY #30 tablet. 02/23/18 [Last Taken Unknown] Spironolactone [Aldactone] 25 mg PO DAILY 02/23/18 [Last Taken 02/22/18] Sucralfate [Carafate] 1 gm PO QID #40 tablet 02/25/18 [Last Taken Unknown] Discharge Plan - Discharge Instructions Activity at Discharge: Resume Usual Activities As Tolerated Diet at Discharge: Advance to Usual Diet Instructions: Abdominal Pain (ED) Quality Measures - Quality Measures Quality Measures: Advance Directives, Documentation of Current Medications in Medical Record, Elder Maltreatment Screen and Follow-Up Plan, Screening for High Blood Pressure and F/U Documented - Current Medications Quality Measure: Measure #130: Documentation of Current Medications Documentation of Current Medications: <Current Medications Documented/Reviewed> [[id number]] - Blood Pressure Screening Quality Measure: Screening for High Blood Pressure and Follow-Up Documented Does Patient Have Any of the Following: Active Dx of HTN Blood Pressure Classification: Pre-Hypertensive BP Reading Systolic Measurement: 138 Diastolic Measurement: 67 Screening for High Blood Pressure: Patient Exclusion, Hx of HTN [G9744] - Advance Directives Quality Measure: Measure #47: Care Plan Advance Directives Established: No Advance Directives Information Provided To Patient: No Advance Directives on File: No Living Will: Yes Power of Nondestructive Tester: Yes Power of Nondestructive Tester Name: Susan Mauricio Advance Care Planning: <Care Plan/Decision Maker Documented; Discussed & Documented> [[id number]] - Elder Abuse Suspicion Index Screening: Elder Abuse Suspicion Index Screening Rely on people for bathing, dressing, shopping, banking, etc: No Prevented from getting food, clothes, medication, etc: No Made to feel shamed or threatened by someone: No Forced to sign papers or use money against will: No Feel afraid, touched in ways not wanted or hurt physically: No Poor eye contact, withdrawn, malnourished, cuts or bruises: No Screening Result: Negative result EASI Reference Information: Christo ARAYA, Jose Luis C, Nhi D, April Diaz.Development and validation of a tool to assist physicians identification of elder abuse: The Elder Abuse Suspicion Index (EASI ). Journal of Elder Abuse and Neglect, 2008; 20 (3): 276-300. - Elder Maltreatment Screen Quality Measures: Elder Maltreatment Screen and Follow-Up Plan Elder Maltreatment Screen: <Negative, No Follow-Up Plan Required> [G8734]
== END 2018-02-25 03:10 | disposition home or self-care (01) ==
LOC: ER 22:02 → MEDSURG 02-24 00:39
PROVIDERS: ADMIT Internal Medicine; ATTEND Internal Medicine
DX: R10.13 Epigastric pain (principal); I50.9 Heart failure, unspecified; Z95.0 Presence of cardiac pacemaker
CPT/HCPCS: 83605; 83690 ×2; 80053 ×2; 81001; 81003; 84484; 85027 ×2; 76700; 74177; G0378 ×2; Q9967; J2405 ×2; J1170; J2274 ×2; J3490; J2270; 96374; 96375; 99217; 99220; 99285

== ENCOUNTER 2018-03-03 09:08 | Day surgery (SDC) | payer MEDICARE, BC ==
[2018-03-03] MEDS ORDERED: LIDOCAINE 2% MDV (20MG/ML) 20ML VIAL IV ONE (09:09)
[2018-03-03] MEDS ORDERED: PROPOFOL 10 MG/ML VIAL IV ONE (09:09)
--- NOTE | 2018-03-03 14:50 | Operative Note ---
DATE OF SURGERY: 03/03/2018 OPERATION: ESOPHAGOGASTRODUODENOSCOPY with biopsy. INDICATION: Epigastric and lower chest pain which was rather acute. The cause of this was unclear. The patient was hospitalized with a negative cardiac evaluation although she has an extensive cardiac history. Upper endoscopy is performed at this time for further evaluation. Her pain is lessened at this time. ANESTHESIA: Intravenous sedation was administered by the department of anesthesiology and included Diprivan titrated to effect. PROCEDURE: Following informed consent from this alert individual, including a discussion of the risks and benefits of the procedure and an opportunity for the patient to ask questions, the patient was in the left lateral decubitus position. The Olympus [id number] video endoscope was inserted into the esophagus without resistance. The proximal esophagus had a normal appearance with normal folds and distensibility. The mid and distal esophagus likewise was free from mucosal abnormalities. There was, however, a small 2 cm hiatal hernia sac noted. The hernia sac itself was free from any mucosal changes. The stomach was entered. The gastric fundus and pars media and antrum had a diffuse mild erythema noted with some retained bilious liquid and suspected bile gastritis. No ulcerations or erosions were seen. The pylorus was symmetrical and patent. The duodenal bulb, sweep, and descending duodenum were examined in a serial fashion and found to be normal. The instrument was then withdrawn back into the body of the stomach where retroflexion accomplished following air insufflation failed to demonstrate any additional changes. The endoscope was then straightened. Biopsies were taken from throughout the stomach to assess for Helicobacter pylori and check histology. After biopsies, endoscope was then withdrawn back through a normal hernia sac and esophagus and removed from the patient. The patient tolerated the procedure well and was returned to the recovery area in stable condition. IMPRESSION: 1. Diffuse mild bile gastritis, biopsies taken from throughout the stomach. 2. Small hiatal hernia. RECOMMENDATION: The patient can continue with her current medical regiment including acid blockade and Carafate, the latter of which might help bind up bile. It is not clear that the stomach is the cause for all her pain, which was rather constant and acute. The pain could be musculoskeletal as well. It did extend through to the back. Again, this was not clear. Further recommendations might be forthcoming pending results of biopsy. Followup will be with Dr. Aragon. As always, thank you for allowing me to participate in the care of your patient. CC: Tiago Aragon MD [facility]
== END 2018-03-03 11:05 | disposition home or self-care (01) ==
LOC: HOP 09:08
PROVIDERS: ATTEND Internal Medicine Gastroenterology
DX: K29.70 Gastritis, unspecified, without bleeding (principal); K44.9 Diaphragmatic hernia without obstruction or gangrene; R07.89 Other chest pain; I10 Essential (primary) hypertension; I50.9 Heart failure, unspecified; Z85.828 Personal history of other malignant neoplasm of skin; Z95.810 Presence of automatic (implantable) cardiac defibrillator